=== PATIENT | female | born 1990 | race Caucasian/White ===

== ENCOUNTER 2022-07-01 07:20 | Outpatient (RCR) | payer BC, SELFPAY ==
[2022-07-02] MEDS: RHO(D) IMMUNE GLOBULIN 300 MCG/2 ML SYRINGE IM (11:49)
== END 2022-09-29 23:59 | disposition home or self-care (01) ==
LOC: ANHLAB 07:20
PROVIDERS: PCP Internal Medicine; Visit Provider Obstetrics & Gynecology
DX: Z29.13 Encounter for prophylactic Rho(D) immune globulin (principal); O36.0190 Maternal care for anti-D [Rh] antibodies, unspecified trimester, not applicable or unspecified; Z3A.00 Weeks of gestation of pregnancy not specified
CPT/HCPCS: 36415; 85461; 90384; 96372; J2790

== ENCOUNTER 2022-09-12 07:02 | Outpatient (CLI) | payer BC, SELFPAY ==
[2022-09-12 08:11] LABS: Hematocrit 40.4 % (37.0-47.0); Hemoglobin 13.2 g/dL (12.0-15.0); Mean Corpuscular HGB Conc 32.7 g/dl (32-36); Mean Corpuscular Hemoglobin 28.4 pg (26-34); Mean Corpuscular Volume 86.9 fl (80-100); Mean Platelet Volume 9.5 fl (7.4-10.4); Platelet Count Result 278 k/mm3 (150-375); Red Blood Count 4.65 M/mm3 (4.2-5.4); Red Cell Distribution Width 13.9 % (11.5-14.5); White Blood Count 9.2 K/mm3 (4.5-10.0)
[2022-09-13 14:47] LABS: Rapid Plasma Reagin Non-Reactive (NonReactive)
== END 2022-09-12 07:03 | disposition home or self-care (01) ==
LOC: ANHLAB 07:04
PROVIDERS: PCP Internal Medicine; Visit Provider Obstetrics & Gynecology
DX: Z34.93 Encounter for supervision of normal pregnancy, unspecified, third trimester (principal); Z3A.00 Weeks of gestation of pregnancy not specified
CPT/HCPCS: 36415; 85027; 86592; 86850; 86900; 86901

== ENCOUNTER 2022-09-13 09:47 | Inpatient (IN) | payer BC, SELFPAY ==
[2022-09-13] VITALS (52 sets, daily range): BP systolic 96–118; BP diastolic 53–72; PULSE 60–106; RESP 16–18; TEMP 36.2–36.8; O2SAT 89–100; BMI 41.2
[2022-09-13] MEDS: LACTATED RINGERS 1,000 ML 125 ML IV CONT ×2 (10:40→11:49)
[2022-09-13 11:28] LABS: HIV 1/2 Ab P24 Ag Result Negative (Negative)
--- NOTE | 2022-09-13 11:57 | WPDANESEPPF ---
Anes - Initial Pre Proc Eval Procedure: Operation Date: 09/13/22 12:00 Proposed Procedures p Section - Yan Kulkarni MD Date/Time: 09/13/22 11:57 Surgeon: Yan Kulkarni MD Pre Op Diagnosis: C/S Patient Data Age: 32 Gender: F Height: 1.63 m Weight: 109 kg Last Vital Signs Pulse 97 09/13/22 10:31 BP 113/72 09/13/22 10:31 O2 Del Method Room Air 09/13/22 10:45 Allergies Allergy/AdvReac Type Severity Reaction Status Date / Time No Known Allergies Allergy Verified 08/25/22 12:44 Home Medications Medication Instructions Recorded Confirmed Type omeprazole 20 mg capsule,delayed 20 mg PO DAILY PRN Indigestion 08/25/22 08/25/22 History release prenat.vits,cecilia,[id number]-[id number] 1 tablet PO HS 08/25/22 08/25/22 History Laboratory Tests 09/13/22 10:05 HIV 1&2 Ab/P24 Ag 4thGn Negative (Negative) Patient hx anesthesia problems: none Family hx anesthesia problems: none Results Review: All pre-operative results and documents have been reviewed as part of the pre-operative evaluation. [facility] Family History Family History (Updated 08/25/22 @ 12:49 by Gisela Villa RN) Other Patient denies significant medical history Social History Social History Smoking status: Former smoker Tobacco type: cigarettes Second hand tobacco smoke exposure: Yes Substance use: never Lack of Transportation: No Lack of Food: Never True Current Housing: I Have Housing Concerned About Future Housing: No Difficulty Paying Gas/Electric Bills: No Difficulty Paying for Meds: No Currently Unemployed: No Education: Master's Degree or Higher Difficulty w/ Childcare or Family Care: No Spiritual care concerns: No Anes - Eval Final PreProcedure Day of Procedure 09/13/22 11:57 Patient weight: morbidly obese Heart: regular rate and rhythm Lungs: clear to auscultation Airway: Mallampati scale class III Neurological: alert and oriented Last oral intake: >/= 8 hours ASA classification: III Emergent: no Anesthetic plan: proceed Anesthesia type and monitoring: regional spinal and standard monitoring Results Review: All pre-operative results and documents have been reviewed as part of the pre-operative evaluation. Informed Consent: The patient's anesthetic plan and its attendant risks and benefits were discussed with the patient/family/POA. Questions were solicited and answers provided to the satisfaction of the patient/family/POA.
--- NOTE | 2022-09-13 12:10 | PM.IMHP ---
H&P: HPI History of Present Illness Date/Time: 09/13/22 12:10 Chief Complaint: Here for c section Narrative: 32 y/o G1 at 39 weeks with breech presentation, here for primary . GBS neg. Review of Systems Review of Systems: All systems reviewed & are unremarkable except as noted in HPI and below PMFSH Surgical History Surgical History History of cholecystectomy Family History Family History Other Patient denies significant medical history Social History Social History Smoking status: Former smoker Tobacco type: cigarettes Second hand tobacco smoke exposure: Yes Substance use: never Lack of Transportation: No Lack of Food: Never True Current Housing: I Have Housing Concerned About Future Housing: No Difficulty Paying Gas/Electric Bills: No Difficulty Paying for Meds: No Currently Unemployed: No Education: Master's Degree or Higher Difficulty w/ Childcare or Family Care: No Spiritual care concerns: No Meds Home Medications and Allergies Home Medications Medication Instructions Recorded Confirmed Type omeprazole 20 mg capsule,delayed 20 mg PO DAILY PRN Indigestion 08/25/22 08/25/22 History release prenat.vits,cecilia,gyo-[id number]-[id number] 1 tablet PO HS 08/25/22 08/25/22 History Allergies Allergy/AdvReac Type Severity Reaction Status Date / Time No Known Allergies Allergy Verified 08/25/22 12:44 Vital Signs Vital Signs - 24 hr 09/13/22 10:45 09/13/22 10:25 09/13/22 10:31 Pulse Rate 95 97 Blood Pressure 112/71 113/72 Oxygen Delivery Room Air Exam Const: Orientation/consciousness: patient oriented x3 Other: Well-developed, well-nourished female in no acute distress. Neck: Thyroid: thyroid normal Lymphatic: no lymphadenopathy noted (in neck, axilla or inguinal nodes) Resp: Effort & Inspection: normal respiratory effort Auscultation: clear to auscultation bilaterally Cardio: Rate: regular rate Rhythm: regular rhythm Heart sounds: S1 normal heart sound present and S2 normal heart sound present GI: Other: ABD: Soft, nontender, nondistended, gravid. NST reactive. TOCO: irregular contractions. Bedside ultrasound exam by me confirms persistent breech presentation. : General: Yes no CVA tenderness Other: Cervix closed, thick. Back/Spine/Pelvis: Back: no CVA tenderness Skin: General skin exam: normal color and no rashes or lesions noted Neuro: General: patient oriented x3 Extrem: Other: Extremities: nontender with no edema Psych: Mental Status: mental status grossly normal Affect: normal affect Assessment and Plan Assessment and plan (1) Term : Code(s): Z34.90 - Encounter for supervision of normal , unspecified, unspecified trimester Status: Acute Assessment and Plan: A: IUP at 39 weeks with breech presentation. P: Have reviewed options, including trial of ECV, as well as primary . She prefers primary . She understands risks of surgery to include risks of anesthesia, risks of pain, infection, bleeding, blood products, thromboembolic phenomena and damage to adjacent structures such as bowel, bladder, ureters, blood vessels and nerves. She understands all these risks and elects to proceed with surgery. (2) Breech presentation: Code(s): O32.1XX0 - Maternal care for breech presentation, not applicable or unspecified Status: Acute
--- NOTE | 2022-09-13 12:14 | WPDHPUPDATE1 ---
History and Physical Update Update Date/Time: 09/13/22 12:14 History and Physical has been reviewed, including an updated exam of the patient. There are NO changes in the patient's condition. Risks, benefits, and alternatives have been discussed and questions answered. Patient agrees to proceed with procedure.
[2022-09-13] MEDS: ceFAZolin 2 GM/D5W 50 ML 2 GM/50 ML BAG IVPB (12:22)
[2022-09-13] MEDS: KETOROLAC 30 MG/ML VIAL (*BKC) IV PUSH ×2 (13:20→18:51)
--- NOTE | 2022-09-13 13:44 | PM.OBPRVD ---
OB - Delivery Note Procedure Delivery date: 09/13/22 Procedure: Procedures Operation Date: 09/13/22 12:00 <No data on this case meets the specified criteria> Primary low transverse delivery Events: Breech Presentation Induction method: None Delivery monitor: External FHT and External Uterine Route of delivery: Specimen: Yes (cord blood) Quantitative Blood Loss (ml): 395 Anesthesia type: Spinal Disposition: PACU Complications: None Narrative: The patient was taken to the operating room where she was prepared and draped in the usual sterile fashion in dorsal supine position with a leftward tilt. She received cefazolin preoperatively. Spinal anesthesia was found to be adequate. A Pfannenstiel skin incision was made and carried through to the underlying layer of the fascia. The fascia was incised in the midline and the incision was extended laterally. The fascia was dissected free of the underlying rectus muscles. The rectus muscles were in the midline. The peritoneum was identified, tented up and entered sharply. The peritoneal incision was extended superiorly and inferiorly with good visualization of the bladder. The bladder blade was placed. The vesicouterine peritoneum was identified, tented up and entered sharply. The incision was extended laterally and the bladder flap was developed. The bladder blade was replaced. The uterus was then incised sharply in a transverse fashion along the lower uterine segment. The incision was extended laterally. The infant's breech was delivered to the level of the scapulae. The arms were swept across the chest and delivered. The head was gently flexed and easily delivered. A loose nuchal cord was reduced. The nose and mouth were bulb suctioned. After a delay, the cord was clamped and cut. The infant was handed off the field. Cord blood was collected. The placenta was removed manually and was passed off the field. The uterus was exteriorized and cleared of all clots and debris. The uterine incision was reapproximated using 0 Monocryl in a running, locked fashion. A second, imbricating layer of the same suture was run. Excellent hemostasis resulted as did excellent reapproximation of the normal anatomy. The uterus was returned the abdomen. The pelvis was irrigated copiously with warmed normal saline. Hemaderm was applied to the bladder flap. Rigorous hemostasis was assured. The fascial layer was reapproximated using 0 Vicryl in a running fashion. The skin was closed with a running, subcuticular stitch of 4 0 Vicryl. Dermaflex was applied externally. Sponge, lap, needle and instrument counts were correct. The patient was taken to the recovery room in stable condition. The infant went to the nursery in stable condition. I was present and scrubbed the entire procedure. [place] Baby Date of : 09/13/22 Time of : 13:03 Weeks of gestation at delivery: 39 Infant gender: Male Weight (pounds): 7 Weight (ounces): 15 presentation: ale breech Placenta delivery description: Manual Removal and Normal Configuration Cord Vessel Description: 3 Vessels score one minute: 8 score five minutes: 9
--- NOTE | 2022-09-13 13:47 | PM.OBDSVD ---
DS: Admitting Diagnosis Discharge Date 09/16/22 Admitting Diagnosis IUP at 39 weeks Breech presentation DS: Discharge Diagnosis Discharge Diagnosis (1) Breech presentation: Code(s): O32.1XX0 - Maternal care for breech presentation, not applicable or unspecified Status: Acute (2) Term : Code(s): Z34.90 - Encounter for supervision of normal , unspecified, unspecified trimester Status: Acute OB - DS: Summary OB Procedures : NST and Ultrasound OB Procedures Intrapartum: OB Procedures: : RHo (D) lg Peripartum Data Procedures: Procedures Operation Date: 09/13/22 12:00 <No data on this case meets the specified criteria> Primary LTCS Time Spent with Patient Time attestation: Total time spent providing and/or coordinating discharge services: DS: Data Data Completed and Pending Labs on day of discharge: Labs from last 24 hours 09/13/22 10:05 HIV 1&2 Ab/P24 Ag 4thGn Negative Discharge Plan Discharge Attending physician on discharge: Yan Kulkarni Consulting providers: Cezar Lloyd ; Kami Ascencio Discharging Clinician: Yan Kulkarni Patient Disposition: Home, Self-Care Activity: may shower and may drive after 2 weeks Diet: regular Wound Care Instructions: incision open to air Discharge Instructions: Education: Mom and Baby Guide Given to: Mother Follow-Up: Call your delivering provider's office for an appointment to be seen in: 4 Weeks Mom and baby should come to the [facility] for the follow-up appointment. Appointment Date/Time: September 19, 2022 at 10:00 am What to expect at your follow-up visit: Blood Pressure Check Physical Assessment Call [phone] if you are unable to keep your appointment time. BREAST CARE: * Wear a snug supportive bra. * For engorgement discomfort: Breast Feeding: * Apply warm moist washcloths * Express milk as needed to relieve engorgement * Wear loose clothing Bottle Feeding: * May apply ice packs * For sore nipples: * Identify correct latch-on * Apply warm moist washcloths before and after nursing * Air dry nipples after nursing * May apply Lansinoh cream to nipples ABDOMINAL INCISION: (if applicable) * Allow incision to air dry * Do NOT use lotions for powders on your incision * When showering, allow soap and water to run over the incision, but do not wash incision EPISIOTOMY/PERINEAL CARE: * Until bleeding stops, use your laureen bottle after urinating * Change your pad frequently throughout the day * You may take sitz baths several times a day (fill your bathtub with warm water and soak for 20 minutes.) Do NOT bathe in the water * No tub baths until seen by your physician - You may shower ACTIVITY: * Rest as much as possible. * Do not exercise or lift anything heavier than your baby (such as laundry or other children.) * Avoid stairs or driving as much as possible. * Do not put anything into the vagina. No douching, tampons, or sexual activity until seen by physician. NOTIFY PHYSICIAN IF YOU HAVE ANY QUESTIONS OR IF ANY OF THE FOLLOWING SYMPTOMS OCCUR: * If your episiotomy or incision becomes red, swollen, or more painful than what you have experienced in the hospital. * If your vaginal bleeding becomes foul smelling. * If your vaginal bleeding becomes more heavy than a period or if your bleeding changes from pink to bright red. However, you may pass an occasional walnut-sized clot once or twice for the first week . * If you experience a sharp, shooting pain in you calves. * If you discover a hard, reddened area on your breast or if you experience flu-like symptoms. DIET: * Eat regular, well-balanced meals. * Drink plenty of fluids daily. If , drink to thirst. Call or return if temperature above 100.4? F, increased abdominal pain, increased vagi
[2022-09-13] MEDS: OXYTOCIN 30 UNITS/NS 500 ML 30 UNITS/500 ML BAG 125 UNITS IV CONT (14:49)
[2022-09-13] MEDS: fentaNYL CITRATE INJ (*CRX) 100 MCG/2 ML VIAL 25 MCG IV PUSH ×2 (15:26→15:45)
--- NOTE | 2022-09-13 16:10 | OBPPTRN ---
Patient transferred to post room #282 via stretcher. Support person present. Oriented to unit, room, information board, rooming in, admission packet and security measures. Patient verbalizes understanding. pt transfered to bed using the 3 B's
--- NOTE | 2022-09-13 16:31 | PC.NURSE ---
1630--All notes and charting for this pt per Sarah Pike RN.
[2022-09-13] MEDS: HYDROcodone/acetaminophen (*CRX) 10-325 MG TABLET 1 TAB PO (21:48)
[2022-09-14] MEDS: HYDROcodone/acetaminophen (*CRX) 5-325 MG TABLET 1 TAB PO ×2 (00:04→23:36)
[2022-09-14] MEDS: HYDROcodone/acetaminophen (*CRX) 10-325 MG TABLET 1 TAB PO ×6 (03:49→20:43)
[2022-09-14] MEDS: SIMETHICONE 80 MG TAB.CHEW PO ×6 (03:49→23:36)
[2022-09-14] MEDS: IBUPROFEN 600 MG TABLET PO ×4 (03:50→23:37)
[2022-09-14 04:10] VITALS: BP 128/78; PULSE 97; RESP 18; TEMP 36.6; O2SAT 99
[2022-09-14 05:57] LABS: Basophils Percent Auto 0.3 % (0.2-1.2); Eosinophils Absolute Auto 0.1 K/mm3 (0-0.3); Hematocrit 37.8 % (37.0-47.0); Hemoglobin 12.5 g/dL (12.0-15.0); Immature Granulocyte Absolute 0.07 K/mm3 (0.00-0.031); Immature Granulocyte Percent A 0.6 % (0-0.5); Lymphocytes Absolute Auto 1.41 K/mm3 (0.9-3.2); Lymphocytes Percent Auto 12.3 % (18.3-44.2); Mean Corpuscular HGB Conc 33.1 g/dl (32-36); Mean Corpuscular Hemoglobin 29.1 pg (26-34); Mean Corpuscular Volume 87.9 fl (80-100); Mean Platelet Volume 9.7 fl (7.4-10.4); Monocytes Absolute Auto 0.6 K/mm3 (0.1-0.6); Monocytes Percent Auto 5.5 % (2.6-8.5); Neutrophils Absolute Auto 9.2 K/mm3 (1.3-6.7); Neutrophils Percent Auto 80.3 % (45.5-73.1); Platelet Count Result 241 k/mm3 (150-375); White Blood Count 11.5 K/mm3 (4.5-10.0)
[2022-09-14 07:30] VITALS: BP 120/66; PULSE 95; RESP 16; TEMP 37; O2SAT 99
[2022-09-14] MEDS: DOCUSATE SODIUM 100 MG CAPSULE PO ×2 (07:40→17:39)
[2022-09-14] MEDS: MULTIVIT/MIN/PREN/FOL AC/IRON TABLET 1 TAB PO (07:41)
[2022-09-14 08:00] VITALS: PULSE 95; RESP 16; O2SAT 99
--- NOTE | 2022-09-14 08:45 | PM.OBPNVD ---
OB - PN: Subj Subjective Date/time seen: 09/14/22 08:45 Narrative: Pain OK. Tolerating diet. Would like circumcision for son. OB - PN: Obj Data Labs CBC & Chem 7: 09/14/22 04:03 Labs: Laboratory Results - last 24 hr 09/13/22 09/14/22 09/14/22 10:05 04:03 04:03 WBC 11.5 H RBC 4.30 Hgb 12.5 Hct 37.8 MCV 87.9 MCH 29.1 MCHC 33.1 RDW 14.0 Plt Count 241 MPV 9.7 Immature Gran % (Auto) 0.6 H Neut % (Auto) 80.3 H Lymph % (Auto) 12.3 L Hutchinson % (Auto) 5.5 Eos % (Auto) 1.0 Baso % (Auto) 0.3 Lymph # (Auto) 1.41 [place] # (Auto) 0.6 Eos # (Auto) 0.1 Baso # (Auto) 0.0 Abs Immat Gran (auto) 0.07 H Absolute Neuts (auto) 9.2 H Absolute Nucleated RBC 0.0 Nucleated RBC % 0.0 HIV 1&2 Ab/P24 Ag 4thGn Negative Blood Type B Negative Antibody Screen TNP Screen Negative Baby's Blood Type A pos Baby's MILTON Negative Doses of RhIg Required 1 OB - PN A/P Plan Comments: A: POD#1, doing well. P: Routine care. Reviewed circ. Exam Narrative: AVSS I/O OK ABD soft, nontender, fundus firm. Incision c/d/i. EXT nontender
--- NOTE | 2022-09-14 10:25 | WPDANLDPN2 ---
Anes-Prog Note L&D Date/Time: 09/14/22 10:25 Comfortable throughout: section Neuraxial method: spinal Epidural/Spinal procedure site: clean & non-tender Neuro status: Neuro function grossly intact. Cardiovascular status: normal Respiratory status: normal Airway patency: baseline Mental status: baseline Post-Op hydration status: normal Vital Signs: Last Vital Signs Temp 37.0 C 09/14/22 07:30 Pulse 95 09/14/22 07:30 Resp 16 09/14/22 07:30 BP 120/66 09/14/22 07:30 Pulse Ox 99 09/14/22 07:30 O2 Del Method Room Air 09/14/22 04:10 Pain score (VAS): 11/01 I/O: Intake & Output 09/13/22 09/14/22 09/14/22 23:59 07:59 15:59 Intake Total 250 2250 Output Total 1450 1650 Balance -1200 600 Post-procedural complaints: none Patient feedback: Patient satisfied with anesthetic care.
--- NOTE | 2022-09-14 10:25 | WPDANLDNPN2 ---
Anes-Prog Note L&D-Neuraxial Date/Time: 09/14/22 10:25 Neuraxial medications: intrathecal PF morphine Opiod-related complaints: none Patient feedback: Patient satisfied with post-operative pain management.
[2022-09-14 11:42] VITALS: BP 109/66; PULSE 84; RESP 16; TEMP 37.6; O2SAT 98
[2022-09-14] MEDS: RHO(D) IMMUNE GLOBULIN 300 MCG/2 ML SYRINGE IM (14:53)
[2022-09-14 20:03] VITALS: BP 114/68; PULSE 98; RESP 18; TEMP 36.7; O2SAT 99
[2022-09-15] MEDS: HYDROcodone/acetaminophen (*CRX) 10-325 MG TABLET 1 TAB PO ×2 (04:01→10:15)
[2022-09-15 04:36] VITALS: BP 129/96; PULSE 100; RESP 18; TEMP 36.6; O2SAT 96
[2022-09-15] MEDS: DOCUSATE SODIUM 100 MG CAPSULE PO ×2 (07:01→17:27)
[2022-09-15] MEDS: IBUPROFEN 600 MG TABLET PO ×3 (07:01→21:53)
[2022-09-15] MEDS: HYDROcodone/acetaminophen (*CRX) 5-325 MG TABLET 1 TAB PO ×3 (07:02→20:47)
[2022-09-15] MEDS: SIMETHICONE 80 MG TAB.CHEW PO (07:02)
[2022-09-15] MEDS: MULTIVIT/MIN/PREN/FOL AC/IRON TABLET 1 TAB PO (07:03)
[2022-09-15 08:00] VITALS: BP 125/66; PULSE 94; RESP 18; TEMP 37; O2SAT 98
[2022-09-15] MEDS: PANTOPRAZOLE 40 MG TABLET PO (12:41)
[2022-09-15] MEDS: CALCIUM CARBONATE (TUMS) 500 MG (200 MG ELEMENTAL) PO (12:41)
[2022-09-15 19:45] VITALS: BP 124/72; PULSE 98; RESP 20; TEMP 36.8; O2SAT 98
[2022-09-16] MEDS: HYDROcodone/acetaminophen (*CRX) 5-325 MG TABLET 1 TAB PO (02:40)
[2022-09-16] MEDS: IBUPROFEN 600 MG TABLET PO (05:12)
--- NOTE | 2022-09-16 05:22 | PC.NURSE ---
Avelina Botello RN charted on this patient from 1800 09/15/22 - 0600 09/16/22
--- NOTE | 2022-09-16 06:33 | PM.OBPNVD ---
OB - PN: Subj Subjective Date/time seen: 09/16/22 06:33 Patient comments: no complaints and pain well controlled baby status: doing well and nursing well OB - PN: Obj Data Labs CBC & Chem 7: 09/14/22 04:03 OB - PN A/P Plan day: 2 Plan: routine care, discharge home and follow up 6 weeks (4 weeks) Time Spent With Patient Time: Total time spent is greater than 50% in coordination of care (as documented) at patient's floor/unit and/or counseling patient: Time with patient: less than 15 minutes Exam Const: General: cooperative, healthy appearing and comfortable Orientation/consciousness: oriented to person, oriented to place and oriented to time Resp: Effort & Inspection: normal respiratory effort GI: Inspection: normal to inspection and incision (Plane urine intact)
[2022-09-16 07:25] VITALS: BP 118/74; PULSE 87; RESP 18; TEMP 36.8; O2SAT 98
[2022-09-16] MEDS: MULTIVIT/MIN/PREN/FOL AC/IRON TABLET 1 TAB PO (08:54)
[2022-09-16] MEDS: HYDROcodone/acetaminophen (*CRX) 10-325 MG TABLET 1 TAB PO (08:54)
[2022-09-16] MEDS: DOCUSATE SODIUM 100 MG CAPSULE PO (08:54)
[2022-09-16] MEDS: PANTOPRAZOLE 40 MG TABLET PO (08:55)
--- NOTE | 2022-09-16 11:00 | PC.NURSE ---
Patient viewed the discharge video Mother & Baby Care, The First Two Weeks . Patient was given the opportunity and encouraged to ask questions. Patient verbalized understanding of information shared and has been given the mother/baby guide for home reference.
[2022-09-19 09:46] VITALS: BP 125/85; PULSE 94; RESP 20; TEMP 36.8; O2SAT 98
== END 2022-09-16 11:10 | disposition home or self-care (01) | DRG 788 ==
LOC: ANHLDR 13:49 → ANHOB2 17:37 → ANHLDR 09-19 11:21 → ANHOB2 09-19 11:21
PROVIDERS: Admitting Provider Obstetrics & Gynecology; PCP Internal Medicine; Visit Provider Obstetrics & Gynecology
PROC: 10D00Z1 Extraction of Products of Conception, Low, Open Approach (ICD-10-PCS; CPT 59514; principal; 2022-09-13 12:00)
DX: O32.1XX0 Maternal care for breech presentation, not applicable or unspecified (principal); Z3A.39 39 weeks gestation of pregnancy; Z37.0 Single live birth
CPT/HCPCS: 36415; 85025; 85461; 86703; 86850; 86900; 86901; 90384; A9270; G0432; J0131; J0690; J1885; J2274; J2370; J2405; J2590; J2790; J3010; J7120